=== PATIENT | female | born 1985 | race Caucasian/White ===

== ENCOUNTER → 2020-07-10 09:41 | Outpatient (BNVA) | payer SELFPAY | PROVIDERS: Family Provider Nurse Practitioner Family; PCP Nurse Practitioner Family; Visit Provider Obstetrics & Gynecology | DX: N85.4 Malposition of uterus (principal) | CPT/HCPCS: 76830 ==

== ENCOUNTER → 2020-07-15 12:30 | Outpatient (BNVA) | payer SELFPAY | PROVIDERS: Family Provider Nurse Practitioner Family; PCP Nurse Practitioner Family; Visit Provider Obstetrics & Gynecology | DX: N93.9 Abnormal uterine and vaginal bleeding, unspecified (principal) | CPT/HCPCS: 84146; 84443; 85025 ==

== ENCOUNTER 2021-10-22 16:58 | Emergency (ER) | payer MEDICAID, SELFPAY ==
[2021-10-22 17:38] VITALS: BP 135/79; PULSE 115; RESP 16; TEMP 37.3; O2SAT 98; BMI 19.8
--- NOTE | 2021-10-22 18:58 | ED_ITS ---
HPI - Abdominal Pain General: Chief Complaint: Abdominal Pain Stated Complaint: abd pain Time Seen by Provider: 10/22/21 18:58 History of Present Illness: 36-year-old female comes in today with complaints of right lower quadrant abdominal pain. Patient reports pain increases with mov ement. Patient denies any vomiting or diarrhea. Patient reports no fever but does feel chilled at times. Patient appears in mild to moderate pain. Patient appears nontoxic. Patient has had tubal ligation, oophorectomy of left and C- sections. Patient reports no other abdominal surgeries. Associated Symptoms: Reports nausea; Denies diarrhea, fever(s) and vomiting Review of Systems General: Reports: 10 or more systems reviewed and unremarkable except in HPI and below Const: Denies: fever(s) Card: Denies: chest pain Resp: Denies: dyspnea GI: Reports: abdominal pain and nausea; Denies: vomiting or diarrhea : Denies: difficulty voiding Musc: Denies: neck pain or back pain Skin/Breast: Denies: rash PFSH ED PFSH: Medical History (Updated 10/22/21 @ 22:15 by SHREYAS Ramirez) Allergic sinusitis No pertinent past medical history Denies diabetes, asthma, hypertension, seizures, DVT/PE PCP: SHREYAS Blake Surgical History S/P ORIF (open reduction internal fixation) fracture Right femur in 2012 Status post delivery X 4 -----> 2004, 2008, 2011 and 2039. -07/12/2013--repeat low transverse delivery with bilateral tubal li gation by Dr. Garcia at 35 weeks and 4 days for preeclampsia at [facility] [place]. Status post left oophorectomy 03/08/2019---bilateral salpingectomy with left nephrectomy for persistent ovarian cyst, performed by Dr. Richards at [facility]. Pathology showed benign fallopian tubes bilaterally. Left ovary showing follicular cyst as well as benign serous cystadenofibroma. Status post tubal ligation 07/12/2013--tubal ligation performed at time of fourth . Family History Sister Breast cancer diagnosed at age 30 Father Hypertension Stroke Mother Hypertension Denies family history of Colon cancer Ovarian cancer Diabetes Heart disease Hyperlipidemia Thyroid condition Social History Smoking and tobacco status: never smoked Alcohol intake: never Physical Exam Const: COMMON NORMALS: alert HENMT: HEAD & SCALP: normal to inspection Neck/C-Spine: COMMON NORMALS: full ROM Resp: COMMON NORMALS: normal respiratory effort and clear to auscultation bilaterally AUSCULTATION: clear to auscultation bilaterally Cardio: COMMON NORMALS: regular rate RATE: regular rate GI: INSPECTION: Yes normal to inspection PALPATION: Yes Tenderness to palpation present (GI) Details: RLQ : COMMON NORMALS: Yes no CVA tenderness BLADDER/KIDNEY EXAM: Yes no CVA tenderness Back/Pelvis: COMMON NORMALS: no CVA tenderness Extremity: COMMON NORMALS: normal to inspection Neuro: SENSORIUM/ORIENTATION: Yes alert Skin: COMMON NORMALS: no rashes or lesions noted GENERAL SKIN EXAM: no rashes or lesions noted Course Vital Signs: Vital signs: Vital Signs Temperature 99.2 F 10/22/21 17:38 Pulse Rate 115 H 10/22/21 17:38 Respiratory Rate 16 10/22/21 17:38 Blood Pressure 135/79 10/22/21 17:38 Pulse Oximetry 98 10/22/21 17:38 MDM - Abdominal Pain Medical Decision Making Patient comes in today with right lower quadrant abdominal pain. On exam abdomen soft nontender. No rebound tenderness or guarding is noted. Patient does have some right lower quadrant/pelvic discomfort. Differential diagnosis includes ovarian cyst, appendicitis, urinary tract infection. Urinalysis was positive for infection. Ultrasound of the abdomen and pelvis was unremarkable without any signs of appendicitis or significant ovarian cyst. Urinalysis showed a positive nitrates and large amount of bacteria and white blood cells. Believe the patient probably has a urinary tract infection, recommended treatment with antibiotics, recommend monitoring for worsening symptoms return as needed. Patient reported understanding. Lab Data : 10/22/21 19:15 10/22/21 19:15 Labs/Radiology: Radiology Impressions Appendix Ultrasound 10/22/21 19:06 IMPRESSION: Appendix not visualized, negative for free fluid. Pelvis Ultrasound 10/22/21 19:06 IMPRESSION: Left ovary is absent, negative for abnormality seen Laboratory Results WBC 8.8 10^3/uL (4.0-10.0) 10/22/21 19:15 RBC 4.71 10^6/uL (4.1-5.3) 10/22/21 19:15 Hgb 13.8 g/dL (11.5-15.3) 10/22/21 19:15 Hct 40.3 % (37.0-47.0) 10/22/21 19:15 MCV 85.6 fl (81-99) 10/22/21 19:15 MCH 29.3 pg (28.0-34.0) 10/22/21 19:15 MCHC 34.2 g/dL (30.0-36.0) 10/22/21 19:15 RDW 12.4 % (12.1-15.1) 10/22/21 19:15 Plt Count 225 10^3/cmm (130-400) 10/22/21 19:15 MPV 10.3 fL (7.4-10.4) 10/22/21 19:15 Neut % (Auto) 72.1 % 10/22/21 19:15 Lymph % (Auto) 19.7 % 10/22/21 19:15 [place] % (Auto) 6.8 % 10/22/21 19:15 Eos % (Auto) 1.1 % 10/22/21 19:15 Baso % (Auto) 0.2 % 10/22/21 19:15 Neut # (Auto) 6.35 10^3/uL (1.8-7.7) 10/22/21 19:15 Lymph # (Auto) 1.7 10^3/uL (0.8-4.8) 10/22/21 19:15 [place] # (Auto) 0.6 10^3/uL (0.2-0.9) 10/22/21 19:15 Eos # (Auto) 0.1 10^3/uL (0.0-0.8) 10/22/21 19:15 Baso # (Auto) 0.0 10^3/uL (0.0-0.1) 10/22/21 19:15 Nucleated RBC % (auto) 0 % 10/22/21 19:15 Nucleated RBCs # 0.0 /100WBC 10/22/21 19:15 Sodium 139 mmol/L (136-145) 10/22/21 19:15 Potassium 3.7 mmol/L (3.5-5.1) 10/22/21 19:15 Chloride 102 mmol/L (98-107) 10/22/21 19:15 Carbon Dioxide 25 mmol/L (22-29) 10/22/21 19:15 Anion Gap 15.7 (5-19) 10/22/21 19:15 BUN 16 mg/dL (6-20) 10/22/21 19:15 Creatinine 0.6 mg/dL (0.5-0.9) 10/22/21 19:15 GFR Calculation 111.9 mL/min (90-130) 10/22/21 19:15 Glucose 80 mg/dL (65-115) 10/22/21 19:15 Calculated Osmolality 288 mOsm/kg (285-295) 10/22/21 19:15 Calcium 9.5 mg/dL (8.5-10.5) 10/22/21 19:15 Total Bilirubin 0.3 mg/dL (0.15-1.2) 10/22/21 19:15 AST 14 U/L (0-32) 10/22/21 19:15 ALT 12 U/L (0-33) 10/22/21 19:15 Alkaline Phosphatase 76 IU/L (35-105) 10/22/21 19:15 Total Protein 7.7 g/dL (6.6-8.7) 10/22/21 19:15 Albumin 5.2 g/dL (3.5-5.2) 10/22/21 19:15 Globulin 2.5 g/dL (1.3-4.6) 10/22/21 19:15 Lipase 33 U/L (13-60) 10/22/21 19:15 HCG, Qual Negative (Negative) 10/22/21 19:15 Urine Color Straw (Yellow) 10/22/21 18:58 Urine Appearance Sl hazy (CLEAR) 10/22/21 18:58 Urine pH 5 (5-7) 10/22/21 18:58 Ur Specific [place] 1.020 (1.005-1.030) 10/22/21 18:58 Urine Protein Neg (Negative) 10/22/21 18:58 Urine Glucose (UA) Norm (Normal) 10/22/21 18:58 Urine Ketones Negative (Negative) 10/22/21 18:58 Urine Blood Neg (Negative) 10/22/21 18:58 Urine Nitrate Positive (Negative) H 10/22/21 18:58 Urine Bilirubin Neg (Negative) 10/22/21 18:58 Urine Urobilinogen Norm mg/dL (Negative) 10/22/21 18:58 Ur Leukocyte Esterase Negative (Negative) 10/22/21 18:58 Urine RBC 0-4 /hpf (0-2) H 10/22/21 18:58 Urine WBC 0-4 /hpf (0-5) H 10/22/21 18:58 Ur Squamous Epith Cells None /hpf (0-5) 10/22/21 18:58 Amorphous Sediment Not Reportable 10/22/21 18:58 Urine Bacteria 4+ /hpf (NONE) H 10/22/21 18:58 Discharge Plan Discharge Patient Disposition: Home Clinical Impression: Abdominal pain Qualifiers: Abdominal location: right lower quadrant Qualified Code(s): R10.31 - Right lower quadrant pain UTI (urinary tract infection) Qualifiers: Urinary tract infection type: acute cystitis Hematuria presence: without chang turia Qualified Code(s): N30.00 - Acute cystitis without hematuria Condition: Stable Prescriptions: New Cipro 500 mg tablet 500 mg PO BID Qty: 10 0RF No Action norethindrone-e.estradiol-iron [Junel FE 06/04 (28)] 1 mg-20 mcg (21)/75 mg (7) tablet 1 tab PO DAILY 84 Days Qty: 84 3RF pseudoephedrine HCl [Sudafed] 30 mg tablet 30 mg PO BID 15 Days Qty: 30 0RF Rx Instructions: No further refills until seen in office valacyclovir [Valtrex] 500 mg tablet 500 mg PO BID 5 Days Qty: 10 0RF Discharge Orders: Discharge ED (Routine); Ordered 10/22/21 Ordered By: Damian Mclean Referrals: GABE Torrez, PROCUREMENT ENGINEER [Primary Care Provider] - Discharge Diet: Usual diet Discharge Activity: Increase activity as tolerated Patient Instructions: Abdominal Pain (ED) Activity Restrictions/Additional Instructions: Drink plenty of water. Take antibiotic as directed. Follow-up with primary care in 3 days for recheck. Return to ER for worsening symptoms such as fever greater than 100.4, blood in vomit or stool, or inability to hold any fluids down. Coding Level of Care Code ED [place] Strip Gauger for Chg Fwd Exam Comprehensive
--- NOTE | 2021-10-22 19:06 | USR_ITS ---
PROCEDURE INFORMATION: Exam: US Abdomen, Limited; Appendix Exam date and time: 10/22/2021 9:10 PM Age: 36 years old Clinical indication: Abdominal pain; Localized; Right lower quadrant (rlq); Additional info: Rlq pain, R/O appendacitis TECHNIQUE: Imaging protocol: US abdomen. Real time ultrasound with image documentation. Limited exam focused on the appendix. COMPARISON: US transvaginal [id number] 07/10/2020 9:44 AM FINDINGS: Appendix: No evidence of acute appendicitis or right lower quadrant inflammatory process. US/US appendix [id number] IMPRESSION: Appendix not visualized, negative for free fluid.
--- NOTE | 2021-10-22 19:06 | USR_ITS ---
PROCEDURE INFORMATION: Exam: US Pelvis, Transabdominal, Limited Exam date and time: 10/22/2021 9:17 PM Age: 36 years old Clinical indication: Abdominal pain; Right lower quadrant; Additional info: Right pelvic, lower abd pain, R/O ovarian cyst, lt ovary removed. R/O RT ovarian cyst TECHNIQUE: Imaging protocol: Real-time limited transabdominal pelvic ultrasound with image documentation. COMPARISON: US transvaginal [id number] 07/10/2020 9:44 AM FINDINGS: Uterus: Uterus is normal in size. Endometrial stripe is normal measuring 1.8 mm. Right ovary/adnexa: Right ovary is normal in size with color blood flow. Left ovary/adnexa: Left ovary is absent. US/US pelvic limited [id number] IMPRESSION: Left ovary is absent, negative for abnormality seen
[2021-10-22] MEDS: ibuprofen 600 mg Tablet PO (19:24)
[2021-10-22 19:31] LABS: Basophils % 0.2 %; Eosinophils # 0.1 10^3/uL (0.0-0.8); Eosinophils % 1.1 %; Hematocrit 40.3 % (37.0-47.0); Hemoglobin 13.8 g/dL (11.5-15.3); Lymphocytes # 1.7 10^3/uL (0.8-4.8); Lymphocytes % 19.7 %; Mean Corpuscular HGB Conc 34.2 g/dL (30.0-36.0); Mean Corpuscular Hemoglobin 29.3 pg (28.0-34.0); Mean Corpuscular Volume 85.6 fl (81-99); Mean Platelet Volume 10.3 fL (7.4-10.4); Monocytes # 0.6 10^3/uL (0.2-0.9); Monocytes % 6.8 %; Neutrophils # 6.35 10^3/uL (1.8-7.7); Neutrophils % 72.1 %; Nucleated Red Blood Cells % 0 %; Platelet Count 225 10^3/cmm (130-400); Red Blood Count 4.71 10^6/uL (4.1-5.3); Red Cell Distribution Width 12.4 % (12.1-15.1); White Blood Count 8.8 10^3/uL (4.0-10.0)
[2021-10-22 19:42] LABS: HCG, Serum Qual Negative (Negative)
[2021-10-22 19:53] LABS: Blood Urine Neg (Negative); Glucose Urine UA Norm (Normal); Ketones Urine Negative (Negative); Protein Urine Neg (Negative); Urine Appearance SL Hazy (CLEAR); Urine Color Straw (Yellow); pH Urine 5 (5-7)
[2021-10-22 19:54] LABS: Alanine Aminotransferase 12 U/L (0-33); Albumin Level 5.2 g/dL (3.5-5.2); Alkaline Phosphatase 76 IU/L (35-105); Anion Gap 15.7 (5-19); Aspartate Amino Transferase 14 U/L (0-32); Blood Urea Nitrogen 16 mg/dL (6-20); Calcium 9.5 mg/dL (8.5-10.5); Carbon Dioxide 25 mmol/L (22-29); Chloride 102 mmol/L (98-107); Globulin 2.5 g/dL (1.3-4.6); Glomerular Filtration Rate 111.9 mL/min (90-130); Glucose 80 mg/dL (65-115); Lipase 33 U/L (13-60); Osmolality Calculated 288 mOsm/kg (285-295); Potassium 3.7 mmol/L (3.5-5.1); Sodium 139 mmol/L (136-145); Total Bilirubin 0.3 mg/dL (0.15-1.2); Total Protein 7.7 g/dL (6.6-8.7)
[2021-10-22 19:54] LABS: Add Urine Culture? Yes; Add Urine Microscopic? YES; Bacteria Urine 4+ /hpf; Bilirubin Urine Neg (Negative); Leukocyte Esterase Urine Negative (Negative); Nitrate Urine Positive (Negative); RBC Urine 0-4 /hpf (0-2); Urobilinogen Urine Norm (Negative); WBC Urine 0-4 /hpf (0-5)
[2021-10-22] MEDS: ciprofloxacin 500 mg Tablet PO (22:37)
== END 2021-10-22 22:48 | disposition home or self-care (01) ==
PROVIDERS: Emergency Medicine; Emergency Provider Nurse Practitioner Family; PCP Nurse Practitioner Family
DX: N30.00 Acute cystitis without hematuria (principal)
CPT/HCPCS: 76705; 76857; 80053; 81001; 83690; 84703; 85025; 87077; 87086; 87186; 99283

== ENCOUNTER 2021-11-02 13:03 | Emergency (ER) | payer MEDICAID, SELFPAY ==
[2021-11-02 13:08] VITALS: BP 121/82; PULSE 86; RESP 16; TEMP 36.5; O2SAT 97; BMI 19.8
[2021-11-02 14:21] VITALS: BP 112/81; PULSE 82; RESP 16; O2SAT 100
[2021-11-02] MEDS: meclizine 25 mg tablet 50 MG PO (14:24)
[2021-11-02 14:28] LABS: Basophils % 0.1 %; Eosinophils % 0.5 %; Hematocrit 35.6 % (37.0-47.0); Lymphocytes # 1.2 10^3/uL (0.8-4.8); Lymphocytes % 14.1 %; Mean Corpuscular HGB Conc 33.7 g/dL (30.0-36.0); Mean Corpuscular Hemoglobin 29.7 pg (28.0-34.0); Mean Corpuscular Volume 88.1 fl (81-99); Mean Platelet Volume 10.4 fL (7.4-10.4); Monocytes # 0.4 10^3/uL (0.2-0.9); Monocytes % 5.2 %; Neutrophils # 6.79 10^3/uL (1.8-7.7); Neutrophils % 79.7 %; Nucleated Red Blood Cells % 0 %; Platelet Count 255 10^3/cmm (130-400); Red Blood Count 4.04 10^6/uL (4.1-5.3); Red Cell Distribution Width 12.1 % (12.1-15.1); White Blood Count 8.5 10^3/uL (4.0-10.0)
--- NOTE | 2021-11-02 14:45 | ED_ITS ---
HPI - General Adult General: Chief complaint: Dizziness Stated complaint: dizziness Time Seen by Provider: 11/02/21 14:12 History of Present Illness: Patient is 36-year-old female history of vertigo presenting to the emergency room with complaints of vertigo sensation associated nausea which started about 12:00. Patient says that symptoms lasted for 30 minutes and still was mildly persistent. Patient says that she was standing still when she experienced this in the grocery store. Patient also report an episode about 3 days ago. Patient has associated left-sided ear ringing. Patient denies any other focal neurological deficit at this time. Patient says that the vertigo sensation of sudden onset has had 2 episodes of emesis since and L sided headache. Onset: 12pm Duration:40 minutes ago Location:home Severity:moderate Associated symptoms: Reports nausea and vomiting; Deny chest pain, dyspnea, rash or palpitations Review of Systems Const: Denies: fever(s) or chills Eyes: Denies: change in vision ENMT: Denies: mouth pain Card: Denies: chest pain or palpitations Resp: Denies: dyspnea or non-productive cough GI: Reports: nausea and vomiting; Denies: abdominal pain or diarrhea : Denies: dysuria Musc: Denies: extremity pain Skin/Breast: Denies: rash or new lesions Neuro: Reports: other (+vertigo); Denies: weakness in extremities Psych: Reports: other (Normal mood) Elias/Lymph: Denies: easy bruising PFS ED PFSH: Medical History Allergic sinusitis No pertinent past medical history Denies diabetes, asthma, hypertension, seizures, DVT/PE PCP: SHREYAS Blake Surgical History S/P ORIF (open reduction internal fixation) fracture Right femur in 2012 Status post delivery X 4 -----> 2003, 2008, 2011 and 2039. -07/12/2013--repeat low transverse delivery with bilateral tubal ligation by Dr. Garcia at 35 weeks and 4 [place] [facility] [place] Status post left oophorectomy 03/08/2019---bilateral salpingectomy with left nephrectomy for persistent ovarian cyst, performed by Dr. Richards at [facility]. Pathology showed benign fallopian tubes bilaterally. Left ovary showing follicular cyst as well as benign serous cystadenofibroma. Status post tubal ligation 07/12/2013--tubal ligation performed at time of fourth . Family History Sister Breast cancer diagnosed at age 30 Father Hypertension Stroke Mother Hypertension Denies family history of Colon cancer Ovarian cancer Diabetes Heart disease Hyperlipidemia Thyroid condition Social History Smoking and tobacco status: never smoked Alcohol intake: never Physical Exam Const: COMMON NORMALS: alert HENMT: COMMON NORMALS: atraumatic HEAD & SCALP: atraumatic MOUTH: moist mucous membranes not abnormal Eye: COMMON NORMALS: EOMs intact bilaterally and conjunctivae normal CONJUNCTIVA: Yes conjunctivae normal Neck/C-Spine: COMMON NORMALS: full ROM and supple Resp: COMMON NORMALS: normal respiratory effort and clear to auscultation bila terally AUSCULTATION: clear to auscultation bilaterally Cardio: COMMON NORMALS: regular rate RATE: regular rate GI: COMMON NORMALS: Soft to palpation and non-tender PALPATION: Yes Soft to palpation Extremity: COMMON NORMALS: full ROM Neuro: SENSORIUM/ORIENTATION: Yes alert MOTOR EXAM: No Abnormal motor strength present and Other motor observations present (no focal motor deficits) OTHER: Mental status? Awake, alert, and oriented to self, year, month, location, and situation.? Following simple axial and appendicular commands.? Has appropriate fund of knowledge, comprehension, and insight.? Able to recall and understands pertinent aspects of medical history and current treatment status.? ? Language? Speech is fluent without word-finding difficulties.? Intact naming, expression, reception clerk, and repetition.? ? Cranial nerves? 2,3,4,6: PERRL, EOMI with no nystagmus. 5: Intact sensation to light touch, symmetric? 7: Smile symmetrical, no facial droop.? 8: Hearing grossly intact.? 9,10: Normal palate movement.? 11: Normal strength in trapezius bilaterally 12: Tongue protrudes midline.? ? Motor examination? Normal bulk & tone. Strength as follows (R/L): Delts (5/5), Biceps (5/5), Triceps (5/5), Wrist ext (5/5), hip flexors (5/5), plantarflexors (5/5), dorsiflexors (5/5). Sensation? Light Touch: Grossly intact and equal in upper and lower extremities bilaterally? Romberg: Negative.? Distal joint position sense intact ? Coordination? [id number]-finger movements intact without dysmetria or past-pointing.? Rapid fingertaps: preserved amplitude without decriment.? No tremor, myoclonus or truncal ataxia.? ? Gait/stance? Steady, normal narrow base gait with appropriate arm swing and turning.? Tandem gait without hesitation or loss of balance. Psych: COMMON NORMALS: speech normal SPEECH: Yes normal speech MOOD & AFFECT: Yes euthymic mood Course Vital Signs: Vital signs: Vital Signs Temperature 97.7 F 11/02/21 13:08 Pulse Rate 82 11/02/21 14:21 Respiratory Rate 16 11/02/21 14:21 Blood Pressure 112/81 11/02/21 14:21 Pulse Oximetry 100 11/02/21 14:21 MDM - General Adult Medical Decision Making 36-year-old female history of vertigo presents emergency room with acute vertigo episode lasted for 30 minutes with associate nausea vomiting and headache. On exam, patient is neurologically intact. Lab work-up is unremarkable. Patient received meclizine, ativan and IVF reports symptoms are improved while observed in the emergency room. Patient has been able to ambulate without any difficulties. Rx meclizine PRN vertigo I have given patient follow up with our family independence case manager to be seen by our outpatient ENT for vertigo symptoms per patient request. Patient aware of a call from our family independence case manager to schedule for appointment(s) and verbalizes understanding of the importance of following up. Disposition: Discharge. Patient counseled regarding diagnostic impression, treatment plan. Patient given ED strict return precautions to return for continuation, worsening, or development of new symptoms. Instructed to f/u w/ PCP regarding symptoms today. Patient verbalized understanding. Lab Data : 11/02/21 14:11 11/02/21 14:11 Laboratory Results WBC 8.5 10^3/uL (4.0-10.0) 11/02/21 14:11 RBC 4.04 10^6/uL (4.1-5.3) L 11/02/21 14:11 Hgb 12.0 g/dL (11.5-15.3) 11/02/21 14:11 Hct 35.6 % (37.0-47.0) L 11/02/21 14:11 MCV 88.1 fl (81-99) 11/02/21 14:11 MCH 29.7 pg (28.0-34.0) 11/02/21 14:11 MCHC 33.7 g/dL (30.0-36.0) 11/02/21 14:11 RDW 12.1 % (12.1-15.1) 11/02/21 14:11 Plt Count 255 10^3/cmm (130-400) 11/02/21 14:11 MPV 10.4 fL (7.4-10.4) 11/02/21 14:11 Neut % (Auto) 79.7 % 11/02/21 14:11 Lymph % (Auto) 14.1 % 11/02/21 14:11 [place] % (Auto) 5.2 % 11/02/21 14:11 Eos % (Auto) 0.5 % 11/02/21 14:11 Baso % (Auto) 0.1 % 11/02/21 14:11 Neut # (Auto) 6.79 10^3/uL (1.8-7.7) 11/02/21 14:11 Lymph # (Auto) 1.2 10^3/uL (0.8-4.8) 11/02/21 14:11 [place] # (Auto) 0.4 10^3/uL (0.2-0.9) 11/02/21 14:11 Eos # (Auto) 0.0 10^3/uL (0.0-0.8) 11/02/21 14:11 Baso # (Auto) 0.0 10^3/uL (0.0-0.1) 11/02/21 14:11 Nucleated RBC % (auto) 0 % 11/02/21 14:11 Nucleated RBCs # 0.0 /100WBC 11/02/21 14:11 Sodium Cancelled 11/02/21 14:11 Potassium Cancelled 11/02/21 14:11 Chloride Cancelled 11/02/21 14:11 Carbon Dioxide Cancelled 11/02/21 14:11 Anion Gap Cancelled 11/02/21 14:11 BUN Cancelled 11/02/21 14:11 Creatinine Cancelled 11/02/21 14:11 GFR Calculation Cancelled 11/02/21 14:11 Glucose Cancelled 11/02/21 14:11 Calculated Osmolality Cancelled 11/02/21 14:11 Calcium Cancelled 11/02/21 14:11 Total Bilirubin Cancelled 11/02/21 14:11 AST Cancelled 11/02/21 14:11 ALT Cancelled 11/02/21 14:11 Alkaline Phosphatase Cancelled 11/02/21 14:11 Total Protein Cancelled 11/02/21 14:11 Albumin Cancelled 11/02/21 14:11 Globulin Cancelled 11/02/21 14:11 Discharge Plan Discharge Patient Disposition: Home Clinical Impression: Vertigo, Nausea & vomiting Condition: Stable Prescriptions: New meclizine 25 mg tablet 25 mg PO TID PRN (Reason: vertigo) 7 Days Qty: 21 0RF No Action ibuprofen 200 mg Tablet 800 mg PO Q8H PRN (Reason: Pain) 0RF ciprofloxacin HCl [Cipro] 500 mg tablet 500 mg PO BID Qty: 10 0RF Rx Instructions: rx filled 10/28/21 5d/s pt states not picked up Discharge Orders: Discharge ED (Routine); Ordered 11/02/21 Ordered By: Jay Rand Referrals: GABE Torrez FNP [Primary Care Provider] - Discharge Diet: Advance as tolerated Discharge Activity: Increase activity as tolerated Patient Instructions: Dizziness (ED) Activity Restrictions/Additional Instructions: Take your medicine for your vertigo. Do not take your medicine operate heavy machinery, drive, swim or bathe on your own as this medication sedating. Come back to the emergency room if vertigo gets worse or you have any associated neurological symptoms. Our family independence case manager will have you follow-up with ear/nose/throat doctor in the next few days. You would be expected to have a phone call with our family independence case manager who will put you on the schedule. You can expect a call from us in the next 2-3 days. If you don't hear from us, call us back in the emergency room at [phone]. Coding Level of Care Code ED Human Resources Mgr for Terryg Fwd Exam Comprehensive
[2021-11-02 15:19] VITALS: BP 110/71; PULSE 85; RESP 16; O2SAT 97
--- NOTE | 2021-11-02 15:47 | PC.SOCIAL ---
Addendum entered by Lissy Ocampo 11/19/21 18:50: Patient had a follow up appointment scheduled for 11.09.21 with ENT - patient did attend appointment. Original Note: Follow Up Appointment Follow up appointment request sent to ENT for vertigo symptoms.
[2021-11-02 20:21] LABS: Alanine Aminotransferase 11 U/L (0-33); Albumin Level 4.3 g/dL (3.5-5.2); Alkaline Phosphatase 60 IU/L (35-105); Anion Gap 13.7 (5-19); Aspartate Amino Transferase 14 U/L (0-32); Blood Urea Nitrogen 16 mg/dL (6-20); Calcium 8.9 mg/dL (8.5-10.5); Carbon Dioxide 25 mmol/L (22-29); Chloride 104 mmol/L (98-107); Globulin 2.6 g/dL (1.3-4.6); Glomerular Filtration Rate 111.9 mL/min (90-130); Glucose 79 mg/dL (65-115); Osmolality Calculated 288 mOsm/kg (285-295); Potassium 3.7 mmol/L (3.5-5.1); Sodium 139 mmol/L (136-145); Total Bilirubin 0.3 mg/dL (0.15-1.2); Total Protein 6.9 g/dL (6.6-8.7)
== END 2021-11-02 15:20 | disposition home or self-care (01) ==
PROVIDERS: Physician Assistant; Emergency Provider Emergency Medicine; PCP Nurse Practitioner Family
DX: R42 Dizziness and giddiness (principal); R11.2 Nausea with vomiting, unspecified
CPT/HCPCS: 80053; 85025; 99283; J8597

== ENCOUNTER → 2021-11-09 14:33 | Outpatient (BNVA) | payer MEDICAID, SELFPAY | PROVIDERS: PCP Nurse Practitioner Family; Visit Provider Otolaryngology | DX: H81.09 Meniere's disease, unspecified ear (principal); M26.621 Arthralgia of right temporomandibular joint | CPT/HCPCS: 99203; 99204 ==

== ENCOUNTER → 2021-12-07 11:47 | Outpatient (BNVA) | payer MEDICAID, SELFPAY | PROVIDERS: PCP Nurse Practitioner Family; Visit Provider Obstetrics & Gynecology | DX: R30.0 Dysuria (principal) | CPT/HCPCS: 87086 ==

== ENCOUNTER 2023-05-04 14:50 | Emergency (ER) | payer MEDICAID, SELFPAY ==
--- NOTE | 2023-05-04 14:51 | XRR_ITS ---
PROCEDURE INFORMATION: Exam: XR Chest Exam date and time: 05/04/2023 3:02 PM Age: 37 years old Clinical indication: Pain; Angina pectoris; Additional info: Cp TECHNIQUE: Imaging protocol: Radiologic exam of the chest. Views: 1 view. COMPARISON: CR XR chest 1V [id number] 10/20/2018 10:27 PM FINDINGS: Lungs: Unremarkable. No consolidation. Pleural spaces: Unremarkable. No pleural effusion. No pneumothorax. Heart/Mediastinum: Unremarkable. No cardiomegaly. Bones/joints: Unremarkable. XR/XR chest 1V portable [id number] IMPRESSION: No acute findings.
--- NOTE | 2023-05-04 14:51 | ECG_ITS ---
[facility] Test Date: 2023-05-04 Pat Name: Anegline Duque Department: Room: Gender: Female Drywall Taper: : 1985 Requested By: Melissa Longo Order Number: [id number] Randy MD: Scarlett Burt M.D. Measurements Intervals [place] Rate: 80 P: 59 IA: 145 QRS: 28 QRSD: 75 T: 37 QT: 333 QTc: 386 Interpretive Statements SINUS RHYTHM Compared to ECG 10/20/2018 22:15:07 No significant changes Electronically Signed On 05-04-2023 22:21:28 POLISH MAKER by Scarlett Burt M.D. [email or web address]
[2023-05-04 14:54] VITALS: BP 113/78; PULSE 88; RESP 18; TEMP 36.8; O2SAT 99; BMI 22.0
== END 2023-05-04 15:50 | disposition left against medical advice (07) ==
PROVIDERS: Emergency Provider Family Medicine; PCP Nurse Practitioner Family
DX: Z53.21 Procedure and treatment not carried out due to patient leaving prior to being seen by health care provider (principal)
CPT/HCPCS: 71045; 93005; 99285

== ENCOUNTER 2024-12-27 20:18 | Emergency (ER) | payer BC, MEDICAID, SELFPAY ==
[2024-12-27 20:44] VITALS: BP 124/83; PULSE 75; RESP 17; TEMP 36.9; O2SAT 100; BMI 22.4
[2024-12-27 23:30] VITALS: BP 119/85; PULSE 75; O2SAT 100
[2024-12-27] MEDS: tetanus-dipt-pertussis 0.5 mL SDV IM (23:58)
--- NOTE | 2024-12-28 00:58 | ED_ITS ---
HPI - Wound/Laceration General: Chief Complaint: Wound/Laceration Stated Complaint: Rt ankle, bit by something, swollen Time Seen by Provider: 12/27/24 23:27 Source: patient Mode of arrival: ambulatory Limitations: no limitations History of Present Illness: Patient is a 39-year-old female who presents the emergency department with complaints of a potential bite to her right ankle for the past couple of days that has been getting worse. States that she has had worsening redness and swelling of the right ankle into the foot, pain has been controlled but she is unsure of what bit her. She notes that at the time of onset, she recalls something biting her while she was walking through brush [place] to a [place]. No fever, signs of lower limb ischemia, nausea/vomiting, abdominal pain, or any other systemic symptoms reported. Her vitals are stable at this time. Unknown if tetanus is up-to-date. Onset (ago): day(s) Extremity Location: Right: ankle and foot Place: outdoors Patient tetanus UTD: No Associated symptoms: Denies chills, fever(s), nausea or vomiting Related Data Home Medications ?Medication ?Instructions ?Recorded ?Confirmed ibuprofen 200 mg tablet 800 mg PO Q8H PRN Pain 11/0212/07/21 Previous Rx's ?Medication ?Instructions ?Recorded amoxicillin 875 mg-potassium 1 tab PO BID 10 days #20 tabs 12/27/24 clavulanate 125 mg tablet Allergies Allergy/AdvReac Type Severity Reaction Status Date / Time oseltamivir (From Tamiflu) Allergy Rash/flushi Verified 12/07/21 11:01 ng Review of Systems General: Reports: 10 or more systems reviewed and unremarkable except in HPI and below Const: Denies: fever(s) or chills Card: Denies: chest pain Resp: Denies: dyspnea GI: Denies: abdominal pain, nausea, vomiting or diarrhea Musc: Denies: extremity pain or joint pain Skin/Breast: Reports: erythema, skin pain, skin tenderness, skin swelling and new lesions (Possible bite to right foot); Denies: rash Neuro: Denies: headache(s) [facility] ED PFSH: Medical History No pertinent past medical history Denies diabetes, asthma, hypertension, seizures, DVT/PE PCP: SHREYAS Jackson Surgical History S/P ORIF (open reduction internal fixation) fracture Right femur in 2012 Status post tubal ligation 07/12/2013--tubal ligation performed at time of fourth . Status post left oophorectomy 03/08/2019---bilateral salpingectomy with left oophrectomy for persistent ovarian cyst, performed by Dr. Richards at [facility]. Pathology showed benign fallopian tubes bilaterally. Left ovary showing follicular cyst as well as benign serous cystadenofibroma. Status post delivery X 4 -----> 2004, 2008, 2011 and 2013. -07/12/2013--repeat low transverse delivery with bilateral tubal ligation by Dr. Garcia at 35 weeks and 4 days for preeclampsia [place] [facility] [place]. Family History Sister Breast cancer diagnosed at age 30 Hypertension Ovarian cancer dx age 35 Father Hypertension Stroke Heart disease Mother Hypertension Hyperlipidemia Grandmother Heart disease Maternal Denies family history of Colon cancer Diabetes Thyroid disease Social History Substance/Drug Use: never Physical Exam Const: COMMON NORMALS: no acute distress, average body habitus, patient oriented x3, no limitations, healthy appearing, alert and well nourished HENMT: COMMON NORMALS: normocephalic and atraumatic HEAD & SCALP: normocephalic and atraumatic Neck/C-Spine: COMMON NORMALS: full ROM, no lymphadenopathy, supple and no meningeal signs Resp: COMMON NORMALS: normal respiratory effort, No use of accessory muscles and clear to auscultation bilaterally AUSCULTATION: clear to auscultation bilaterally Cardio: COMMON NORMALS: regular rate and regular rhythm RATE: regular rate RHYTHM: regular rhythm Extremity: COMMON NORMALS: full ROM, capillary refill normal, no joint enlargement and no calf tenderness Neuro: COMMON NORMALS: patient oriented x3, moves all extremities, no focal motor deficits and no sensory deficits noted SENSORIUM/ORIENTATION: Yes alert MENINGEAL SIGNS: Yes no meningeal signs Skin: COMMON NORMALS: turgor normal NARRATIVE SKIN EXAM: There is irregular area of erythema to the right lateral ankle, and some skin swelling extending into the dorsum of the foot. Questionable fang hernandez apparent in the center of the erythema, concern for possible snakebite. GENERAL SKIN EXAM: turgor normal Course Vital Signs: Vital signs: Vital Signs Temperature 98.4 F 12/27/24 20:44 Pulse Rate 75 12/27/24 23:30 Respiratory Rate 17 12/27/24 20:44 Blood Pressure 119/85 12/27/24 23:30 Pulse Oximetry 100 12/27/24 23:30 Oxygen Delivery Me thod Room Air 12/27/24 23:30 MDM - Wound/Laceration Medical Decision Making The area of erythema and associated swelling, and questionable faint hernandez on exam make me concerned for a snake bite. Being that this was a few days ago, likely this was a dry bite and she is without any systemic symptoms or abnormality with her vitals. The area of erythema will be marked, and treatment for associated cellulitis prophylactically will be enacted due to her reports of worsening swelling. There are no signs of limb ischemia and her distal neurovascular status is normal. She is given strict return precautions and specific signs and symptoms to watch for, and will follow-up with regular provider next week. No radiology studies performed this visit Discharge Plan Discharge Patient Disposition: Home Clinical Impression: Cellulitis Condition: Stable Prescriptions: New amoxicillin-pot clavulanate 875-125 mg tablet 1 tab PO BID 10 Days Qty: 20 0RF No Action ibuprofen 200 mg Tablet 800 mg PO Q8H PRN (Reason: Pain) Discharge Orders: Discharge ED (Routine); Ordered 12/27/24 Ordered By: Delano Jonas Patient Instructions: Patient Portal & Jesenia Instructions Activity Restrictions/Additional Instructions: Cellulitis Snakebite Discharge Diagnosis: Cellulitis of the right foot, likely secondary to a non-envenomating ( dry ) snakebite. Antimicrobial Therapy: - Initiate oral antimicrobial therapy targeting streptococci and staphylococci, with additional coverage for aerobic and anaerobic organisms due to the bite mechanism. Amoxicillin-clavulanate is recommended as first-line therapy for animal bite?related cellulitis, unless contraindicated. - If penicillin allergy is present, alternatives include doxycycline or a fluoroquinolone (e.g., levofloxacin) plus metronidazole for anaerobic coverage. - Duration: 5 days, with extension if infection has not clinically improved. - Cultures are not routinely indicated unless the patient is immunocompromised, has severe infection, or fails initial therapy. Wound Care: - Maintain a clean, dry dressing over the bite site. - Elevate the affected limb to reduce edema and promote lymphatic drainage. - Avoid topical alcohol, ice, suction, or tourniquet application, as these interventions may worsen tissue injury or delay healing. - Tetanus vaccination has been updated per CDC and IDSA recommendations for dirty wounds. Pain Management: - Use acetaminophen or opioids for pain control as needed. Avoid NSAIDs due to potential bleeding risk in the context of snakebite. Activity: - Limit ambulation and strenuous activity to minimize swelling and potential spread of any residual venom. Return Precautions: Immediate medical attention is warranted for any of the following: - Worsening infection: - Increasing redness, swelling, warmth, or pain at the site - Development of purulent drainage - Fever, chills, or malaise - Rapid progression of skin changes or new areas of involvement - Signs of systemic illness (tachycardia, hypotension, confusion) - Delayed envenomation (even if initially classified as dry bite): - Sudden onset of severe pain, swelling, or ecchymosis at the bite site - New blistering, necrosis, or bleeding - Neurologic symptoms (ptosis, dysarthria, muscle weakness) - Unexplained bleeding or bruising elsewhere - Nausea, vomiting, abdominal pain - Any signs of shock (lightheadedness, fainting, rapid pulse) - Rapid progression of local symptoms within hours - Other: - Signs of allergic reaction to antibiotics (rash, difficulty breathing, swelling of face/tongue) - Inability to tolerate oral medications or maintain hydration Follow-Up: - Schedule outpatient follow-up within 48?72 hours to reassess clinical response and wound healing. - If symptoms worsen or do not improve, consider wound cultures and escalation of antimicrobial therapy per IDSA guidelines. Additional Notes: - Prophylactic antibiotics are not recommended for snakebite wounds unless infection is present; in this case, therapy is indicated due to clinical cellulitis. - Antivenom is not indicated in the absence of envenomation signs. - Patient education regarding wound monitoring and strict return precautions is essential due to the risk of delayed envenomation and secondary infection. Print Language: Syrian Coding Level of Care Code ED Facility Specialist for Fay Gross
== END 2024-12-28 00:04 | disposition home or self-care (01) ==
PROVIDERS: Emergency Provider Physician Assistant
DX: L03.115 Cellulitis of right lower limb (principal)
CPT/HCPCS: 90471; 90715; 99283; J9999

== ENCOUNTER → 2025-01-29 15:15 | Outpatient (BNVA) | payer BC, MEDICAID, SELFPAY | PROVIDERS: PCP Nurse Practitioner Family; Visit Provider Nurse Practitioner Family | DX: Z00.00 Encounter for general adult medical examination without abnormal findings (principal); Z79.899 Other long term (current) drug therapy; Z13.6 Encounter for screening for cardiovascular disorders; E55.9 Vitamin D deficiency, unspecified | CPT/HCPCS: 80053; 80061; 81003; 82306; 83036; 84443; 85025 ==